=== PATIENT | male | born 2000 | race Caucasian/White ===

== ENCOUNTER 2024-03-12 21:08 | Emergency (ER) | payer OTHER ==
[2024-03-12 21:18] VITALS: BP 136/80; PULSE 93; RESP 24; TEMP 98.5; BMI 28.7
[2024-03-12] MEDS ORDERED: FAMOTIDINE 20 MG TABLET ONE (21:49)
[2024-03-12] MEDS ORDERED: predniSONE 20 MG TABLET (UD) ONE (21:49)
[2024-03-12] MEDS ORDERED: ALBUTEROL SO4 2.5/IPRATROPIUM 0.5 INH SOL 3 ML VIAL.NEB. NEB ONE (21:49)
[2024-03-12] MEDS: predniSONE 20 MG TABLET (UD) PO ONE (21:52)
[2024-03-12] MEDS: FAMOTIDINE 20 MG TABLET PO ONE (21:52)
[2024-03-12] MEDS: ALBUTEROL SO4 2.5/IPRATROPIUM 0.5 INH SOL 3 ML VIAL.NEB. NEB SCH (21:52)
[2024-03-12] MEDS ORDERED: ALBUTEROL SO4 HFA INHALER IH ONE (22:26)
[2024-03-12] MEDS: ALBUTEROL SO4 HFA INHALER IH ONE (22:27)
== END 2024-03-12 22:35 | disposition home or self-care (01) ==
LOC: JER 21:08
DX: J45.901 Unspecified asthma with (acute) exacerbation (principal); R05.9 Cough, unspecified
CPT/HCPCS: 99283-25